=== PATIENT | male | born 1990 ===

== ENCOUNTER 2017-05-17 14:17 | Emergency (ER) | payer MEDICAID, OTHER ==
[2017-05-17 15:34] VITALS: BP 125/68; PULSE 70; RESP 20; TEMP 97.9; O2SAT 98
--- NOTE | 2017-05-17 15:45 | ED PDOC ---
Arrival/HPI - General Chief Complaint: Back Pain Time Seen by Provider: 05/17/17 15:35 Historian: Patient - History of Present Illness Narrative History of Present Illness (Text): 05/17/17 15:42 A 26 year old male, who denies any past medical history, presents to the emergency department complaining of lower back pain for 1 week. Patient states his pain has improved since. However, yesterday while playing basketball he began to experience left sided mid back pain. Patient took Aleve last night, with no relief. Patient denies any direct trauma, weakness, numbness, tingling, fever, chills, nausea, vomiting, abdominal pain, chest pain, shortness of breath or any other complaints. Time/Duration: 1 week Symptom Course: Worsening (yesterday) Quality: Other Context: Other Past Medical History - Provider Review Nursing Documentation Reviewed: Yes - Infectious Disease Hx of Infectious Diseases: None - Psychiatric Hx Substance Use: No Family/Social History - Physician Review Nursing Documentation Reviewed: Yes Family/Social History: No Known Family HX Smoking Status: Never Smoked Hx Alcohol Use: No Hx Substance Use: No Allergies/Home Meds Allergies/Adverse Reactions: Allergies No Known Allergies Allergy (Verified 05/17/17 15:38) Review of Systems - Physician Review All systems were reviewed & negative as marked: Yes - Review of Systems Constitutional: absent: Fevers, Night Sweats Respiratory: absent: SOB Cardiovascular: absent: Chest Pain Gastrointestinal: absent: Nausea, Vomiting Neurological: absent: Focal Weakness (/numbness/tingling) Physical Exam Vital Signs Reviewed: Yes Vital Signs Temp Pulse Resp BP Pulse Ox 05/17/17 15:24 97.9 F 70 20 125/68 98 Temperature: Afebrile Blood Pressure: Normal Pulse: Regular Respiratory Rate: Normal Appearance: Positive for: Well-Appearing, Non-Toxic, Comfortable Pain Distress: None Mental Status: Positive for: Alert and Oriented X 3 - Systems Exam Head: Present: Atraumatic, Normocephalic Pupils: Present: PERRL Extroacular Muscles: Present: EOMI Conjunctiva: Present: Normal Mouth: Present: Moist Mucous Membranes Neck: Present: Normal Range of Motion Respiratory/Chest: Present: Clear to Auscultation, Good Air Exchange. No: Respiratory Distress, Accessory Muscle Use Cardiovascular: Present: Regular Rate and Rhythm, Normal S1, S2. No: Murmurs Abdomen: Present: Normal Bowel Sounds. No: Tenderness, Distention, Peritoneal Signs Back: Present: Normal Inspection Upper Extremity: Present: Normal Inspection. No: Cyanosis, Edema Lower Extremity: Present: Normal Inspection, NORMAL PULSES, Normal ROM, Tenderness (Point tenderness to infrascapula), Neurovascularly Intact, Other ( Sensation and motor strength 5/5). No: Edema, CALF TENDERNESS, Swelling, Erythema, Deformity, Temperature Abnormalties Neurological: Present: GCS=15, CN II-XII Intact, Speech Normal, Motor Func Grossly Intact, Normal Sensory Function, Normal Cerebellar Funct Skin: Present: Warm, Dry, Normal Color. No: Rashes Psychiatric: Present: Alert, Oriented x 3, Normal Insight, Normal Concentration Medical Decision Making ED Course and Treatment: 05/17/17 15:42 Impression: A 26 year old male with left mid back pain Plan: -- Chest xray -- Urinalysis -- Toradol -- Reassess and disposition Progress Notes: Report Date : 05/17/2017 16:41:18 Procedure: Chest xray Dictator : Caleb Tran MD IMPRESSION: No active disease. 05/17/17 16:52 Urinalysis is negative for blood. Chest x-ray shows no infiltrate effusion cardiomegaly or pneumothorax. Improved post Toradol. We'll treat as a musculoskeletal problem. - Lab Interpretations Lab Results: Lab Results 05/17/17 16:15: Urine Color Yellow, Urine Appearance Clear, Urine pH 6.0, Ur Specific [place] 1.015, Urine Protein Negative, Urine Glucose (UA) Negative, Urine Ketones Negative, Urine Blood Negative, Urine Nitrate Negative, Urine Bilirubin Negative, Urine Urobilinogen 0.2, Ur Leukocyte Esterase Negative - RAD Interpretation Radiology Orders: 05/17/17 15:40 CHEST TWO VIEWS (PA/LAT) [RAD] Stat - Medication Orders Current Medication Orders: Discontinued Medications Ketorolac Tromethamine (Toradol) 30 mg IM ONCE ONE Stop: 05/17/17 15:41 Last Admin: 05/17/17 16:25 Dose: 30 mg [facility] Pain Assessment Document 05/17/17 16:25 OCS (Rec: 05/17/17 16:25 OCS [id number]) Pain Reassessment Is this a pain reassessment? Yes Sleep Is patient sleeping during reassessment? No Presence of Pain Presence of Pain Yes Pain Scale Used Pain Scale Used Numeric Location Left, Right or Bilateral Bilateral Upper or Lower Lower Pain Location Body Site Back Description Description Constant Aggravating Factors ADL's IM Administration Charges Document 05/17/17 16:25 OCS (Rec: 05/17/17 16:25 OCS [id number]) Injection Site MAR Injection Site Left Arm Charges for Administration # of IM Administrations 1 - Scribe Statement The provider has reviewed the documentation as recorded by the Scribe Karlie Pedroza Provider Scribe Attestation: All medical record entries made by the Scribe were at my direction and personally dictated by me. I have reviewed the chart and agree that the record accurately reflects my personal performance of the history, physical exam, medical decision making, and the department course for this patient. I have also personally directed, reviewed, and agree with the discharge instructions and disposition. Disposition/Present on Arrival - Present on Arrival Any Indicators Present on Arrival: No History of DVT/PE: No History of Uncontrolled Diabetes: No Urinary Catheter: No History of Decub. Ulcer: No History Surgical Site Infection Following: None - Disposition Have Diagnosis and Disposition been Completed?: Yes Diagnosis: Back strain Disposition: HOME/ ROUTINE Disposition Time: 16:52 Patient Plan: Discharge Condition: IMPROVED Discharge Instructions (ExitCare): Muscle Spasm (ED), Back Pain (ED) Additional Instructions: Rest and ice. Follow-up with PMD. Follow up in ER as needed. Avoid basketball or strenuous activity. Prescriptions: Naproxen [Naprosyn] 500 mg PO BID #14 tab Referrals: PCP,NO [Primary Care Provider] - Follow up with primary Forms: [employer] (Mosotho)
[2017-05-17 16:21] LABS: URINE BILIRUBIN NEGATIVE (NEGATIVE); URINE BLOOD NEGATIVE (NEGATIVE); URINE GLUCOSE (UA) NEGATIVE (NEGATIVE); URINE LEUKOCYTE ESTERASE NEGATIVE Leu/uL (NEGATIVE); URINE NITRATE NEGATIVE (NEGATIVE); URINE PROTEIN NEGATIVE mg/dL (<30 mg/dL); URINE UROBILINOGEN 0.2 E.U./dL (<1 E.U./dL)
[2017-05-17 16:34] LABS: URINE APPEARANCE CLEAR (CLEAR); URINE COLOR YELLOW (YELLOW)
--- NOTE | 2017-05-17 16:43 | RAD ---
HISTORY: back pain COMPARISON: No prior. TECHNIQUE: Chest PA and lateral FINDINGS: LUNGS: No active pulmonary disease. PLEURA: No significant pleural effusion identified. No pneumothorax apparent. CARDIOVASCULAR: Normal. OSSEOUS STRUCTURES: No significant abnormalities. VISUALIZED UPPER ABDOMEN: Normal. OTHER FINDINGS: None. IMPRESSION: No active disease.
== END 2017-05-17 16:58 | disposition home or self-care (01) ==
LOC: ED 14:17
DX: S39.012A Strain of muscle, fascia and tendon of lower back, initial encounter (principal); Y93.67 Activity, basketball
CPT/HCPCS: 71046; 81003; 96372; 99283; J1885

== ENCOUNTER 2017-09-20 19:16 | Emergency (ER) | payer MEDICAID, OTHER ==
[2017-09-20 19:52] VITALS: TEMP 98.6; BMI 22.2
--- NOTE | 2017-09-20 20:39 | ED PDOC ---
Arrival/HPI - General Historian: Patient - History of Present Illness Time/Duration: Prior to Arrival Symptom Onset: Sudden, Gradual Symptom Course: Unchanged Context: Other (basketball) <Naveed Rae - Last Filed: 09/21/17 02:23> <Edwin Taylor - Last Filed: 09/21/17 02:30> - General Chief Complaint: Eye Problem Time Seen by Provider: 09/20/17 20:20 - History of Present Illness Narrative History of Present Illness (Text): 09/20/17 20:59 Patient is a 27 M with no significant past medical history presenting with complaints of blurry vision and pain in right eye s/p injury during basketball an hour prior to arriving to the emergency department. Patient states he was scratched when a teammate's nail went in his eye. Admits to blurry vision, lacrimal formation of right eye, erythema. Denies loss of vision. (Naveed Rae) Past Medical History - Provider Review Nursing Documentation Reviewed: Yes - Infectious Disease Hx of Infectious Diseases: None - Cardiac Hx Cardiac Disorders: No - Pulmonary Hx Respiratory Disorders: No - Neurological Hx Neurological Disorder: No - HEENT Hx HEENT Disorder: No - Renal Hx Renal Disorder: No - Endocrine/Metabolic Hx Endocrine Disorders: No - Hematological/Oncological Hx Blood Disorders: No - Integumentary Hx Dermatological Disorder: No - Musculoskeletal/Rheumatological Hx Musculoskeletal Disorders: No - Gastrointestinal Hx Gastrointestinal Disorders: No - Genitourinary/Gynecological Hx Genitourinary Disorders: No - Psychiatric Hx Psychophysiologic Disorder: No Hx Substance Use: No - Anesthesia Hx Anesthesia: No Hx Anesthesia Reactions: No <Naveed Rae - Last Filed: 09/21/17 02:23> Family/Social History - Physician Review Nursing Documentation Reviewed: Yes Family/Social History: Other Smoking Status: Never Smoked Hx Alcohol Use: No Hx Substance Use: No <Naveed Rae - Last Filed: 09/21/17 02:23> Allergies/Home Meds <Naveed Rae - Last Filed: 09/21/17 02:23> <Edwin Taylor - Last Filed: 09/21/17 02:30> Allergies/Adverse Reactions: Allergies No Known Allergies Allergy (Verified 05/17/17 15:38) Home Medications: Home Meds Medication Instructions Recorded Confirmed Pediatric Multivit No.153/D3/K 1 tab PO DAILY 09/20/17 09/20/17 [Abdek Multivitamin Chew Tab] Review of Systems - Physician Review All systems were reviewed & negative as marked: Yes - Review of Systems Constitutional: Normal. absent: Fatigue Eyes: Vision Changes, Eye Pain, Other (lacrimal production). absent: Photophobia Respiratory: Normal. absent: SOB, Cough, Sputum Cardiovascular: Normal. absent: Chest Pain, Palpitations Gastrointestinal: Normal. absent: Abdominal Pain, Diarrhea Musculoskeletal: Normal. absent: Back Pain Neurological: Normal. absent: Headache, Dizziness Endocrine: Normal Hemo/Lymphatic: Normal Psychiatric: Normal <Naveed Rae - Last Filed: 09/21/17 02:23> Physical Exam Vital Signs Reviewed: Yes Temperature: Afebrile Blood Pressure: Normal Pulse: Regular Respiratory Rate: Normal Appearance: Positive for: Well-Appearing, Non-Toxic, Comfortable Pain Distress: None Mental Status: Positive for: Alert and Oriented X 3 - Systems Exam Head: Present: Atraumatic, Normocephalic Pupils: Present: PERRL, Other (corneal scratch). No: Pinpoint Extroacular Muscles: Present: EOMI Conjunctiva: Present: Other (erythematous, scleral laceration 5 mm) Mouth: Present: Moist Mucous Membranes Respiratory/Chest: Present: Clear to Auscultation, Good Air Exchange Cardiovascular: Present: Regular Rate and Rhythm, Normal S1, S2 Abdomen: Present: Normal Bowel Sounds. No: Tenderness Upper Extremity: Present: Normal Inspection. No: Edema Lower Extremity: Present: Normal Inspection. No: Edema Neurological: Present: GCS=15, CN II-XII Intact, Speech Normal Skin: Present: Warm, Normal Color Psychiatric: Present: Alert, Oriented x 3, Normal Insight, Normal Concentration <Naveed Rae - Last Filed: 09/21/17 02:23> Vital Signs Temp Pulse Resp BP Pulse Ox 09/20/17 21:33 68 16 146/70 99 09/20/17 19:48 98.6 F 80 17 121/78 100 Medical Decision Making Re-evaluation Time: 21:22 (pain improved after eye drops) Reassessment Condition: Re-examined, Improved <Naveed Rae - Last Filed: 09/21/17 02:23> <Edwin Taylor - Last Filed: 09/21/17 02:30> ED Course and Treatment: Visual acuity 20/20, Corneal scratch and scleral laceration noted; will discuss with dental prosthetist Dr. Taylor. Discussed with ophthalmology, patient will continue with antibiotics ciloxan and maxitrol until appointment this week with ophtho. (Naveed Rae) Patient Seen With Resident: In agreement with resident note, which includes further HPI details. Patient was seen and evaluated with resident, came up with plan and treatment together. 27 year old male, presents complaining of blurry vision and pain to the right eye s/p injury playing basketball. Tetracaine used to alleviate pain for exam. Fluorescein added to right eye. Mosqueda lamp used by me and resident to observe a 2mm corneal abrasion. There was also a laceration to the left of conjunctiva as noted. No lacrimal gland or duct laceration. Case was discussed with resident and me with Special Agent In Charge Dr. Taylor who recommended medications as documented and prescribed. He recommended patient follow up with his office tomorrow. He said for them to call his office in the morning. Patient and mom were advised to make sure they follow up tomorrow. They were advised to return to the ED with any worsening symptoms or concerns. (Edwin Taylor) <Naveed Rae - Last Filed: 09/21/17 02:23> - Scribe Statement The provider has reviewed the documentation as recorded by the Scribe <Edwin Taylor - Last Filed: 09/21/17 02:30> - Scribe Statement Jaci Law Provider Scribe Attestation: All medical record entries made by the Scribe were at my direction and personally dictated by me. I have reviewed the chart and agree that the record accurately reflects my personal performance of the history, physical exam, medical decision making, and the department course for this patient. I have also personally directed, reviewed, and agree with the discharge instructions and disposition. (Edwin Taylor) Disposition/Present on Arrival - Present on Arrival Any Indicators Present on Arrival: No History of DVT/PE: No History of Uncontrolled Diabetes: No Urinary Catheter: No History of Decub. Ulcer: No History Surgical Site Infection Following: None - Disposition Have Diagnosis and Disposition been Completed?: Yes Disposition Time: 21:22 Patient Plan: Discharge <Naveed Rae - Last Filed: 09/21/17 02:23> <BrandonEdwin L - Last Filed: 09/21/17 02:30> - Disposition Diagnosis: Corneal abrasion Disposition: HOME/ ROUTINE Condition: GUARDED Discharge Instructions (ExitCare): Corneal Abrasion (DC) Print Language: SYRIAN Additional Instructions: Mr. Peter thank you for letting us take care of you today. Your provider was Dr. Taylor. You were treated for your corneal abrasion. The emergency medical care you received today was directed at your acute symptoms. If you were prescribed any medication, please fill it and take as directed. It may take several days for your symptoms to resolve. Return to the Emergency Department if your symptoms worsen, do not improve, or if you have any other problems. Please contact your doctor or call one of the physicians/clinics you have been referred to that are listed on the Patient Visit Information form that is included in your discharge packet. Bring any paperwork you were given at discharge with you along with any medications you are taking to your follow up visit. Our treatment cannot replace ongoing medical care by a primary care provider (PCP) outside of the emergency department. Thank you for allowing the [facility] team to be part of your care today. Please make an appointment with Special Agent In Charge, Dr. Rivera tomorrow morning. Ciloxan: place a drop in right eye every 2-3 hours while awake. Maxitrol: pull lower lid down and place in eye before bed. If you had an X-Ray or CT scan: A Radiologist will review the ED reading if any change in treatment is needed we will contact you. If you had a blood, urine, or wound culture: It will take several days for the results, if any change in treatment is needed we will contact you. If you had an STI test: It will take 48 hours for the results. Please call after 1 week if you have not heard back. Prescriptions: Ciprofloxacin HCl [Ciloxan] 5 ml OP Q3H #1 drops Neomycin/Polymyxin B/Dexametha [Maxitrol] 1 oin OP ACHS #1 oin Referrals: Michel Sapp MD [Primary Care Provider] - Follow up with primary Anders Rivera MD [Staff Provider] - Follow up with primary Forms: [employer] (Moldovan)
[2017-09-20 21:47] VITALS: BP 146/70; PULSE 68; RESP 16; O2SAT 99
== END 2017-09-20 21:33 | disposition home or self-care (01) ==
LOC: ED 19:16
DX: S05.01XA Injury of conjunctiva and corneal abrasion without foreign body, right eye, initial encounter (principal); W50.4XXA Accidental scratch by another person, initial encounter; Y93.67 Activity, basketball

== ENCOUNTER 2018-08-11 13:58 | Emergency (ER) | payer OTHER ==
[2018-08-11 14:05] VITALS: BMI 23.6
[2018-08-11 14:08] VITALS: TEMP 97.6
[2018-08-11] MEDS ORDERED: Sodium Chloride 0.9% 1,000 ML IV STA (14:12)
[2018-08-11 14:32] LABS: BASO # 0.02 K/mm3 (0.0-2.0); BASO % 0.4 % (0.0-3.0); EOS # 0.1 (0.0-0.7); EOS % 1.5 % (1.5-5.0); HEMOGLOBIN 14.6 g/dL (14.0-18.0); LYMPH # 1.7 (1.2-3.4); LYMPH % 32.3 % (22.0-35.0); MEAN CELL VOLUME 86.8 fl (80.0-105.0); MEAN CORPUSCULAR HEMOGLOBIN 30.5 pg (25.0-35.0); MEAN CORPUSCULAR HGB CONC 35.1 g/dl (31.0-37.0); MEAN PLATELET VOLUME 10.7 fl (7.0-11.0); MONO # 0.4 (0.1-0.6); MONO % 6.8 % (1.0-6.0); RBC 4.79 10^6/uL (3.5-6.1); RED CELL DISTRIBUTION WIDTH 12.3 % (11.5-14.5); WHITE BLOOD COUNT 5.3 10^3/uL (4.5-11.0)
--- NOTE | 2018-08-11 14:32 | ED PDOC ---
Arrival/HPI - General Chief Complaint: ENT Problem Time Seen by Provider: 08/11/18 13:59 Historian: Patient - History of Present Illness Narrative History of Present Illness (Text): 08/11/18 15:01 27 y/o male with no significant PMH presents to the ED c/o "feeling off" x 1 day. Pt states his girlfriends mother is dying of cancer, and today may be "her last day on earth". Pt reports increased anxiety secondary to these life cir cumstances. Associated mild sore throat, palpitations and "lump" on the left side of his neck that he felt this morning. Denies SI, HI, hallucinations, fever, chills, sinus congestion, SOB, chest pain, abdominal pain, nausea, vomiting, back pain, neck pain/stiffness, difficulty swallowing, or any other associated symptoms. Past Medical History - Provider Review Nursing Documentation Reviewed: Yes - Infectious Disease Hx of Infectious Diseases: None - Cardiac Hx Cardiac Disorders: No - Pulmonary Hx Respiratory Disorders: No - Neurological Hx Neurological Disorder: No - HEENT Hx HEENT Disorder: No - Renal Hx Renal Disorder: No - Endocrine/Metabolic Hx Endocrine Disorders: No - Hematological/Oncological Hx Blood Disorders: No - Integumentary Hx Dermatological Disorder: No - Musculoskeletal/Rheumatological Hx Musculoskeletal Disorders: No - Gastrointestinal Hx Gastrointestinal Disorders: No - Genitourinary/Gynecological Hx Genitourinary Disorders: No - Psychiatric Hx Psychophysiologic Disorder: No Hx Substance Use: No - Anesthesia Hx Anesthesia: No Hx Anesthesia Reactions: No Family/Social History - Physician Review Nursing Documentation Reviewed: Yes Family/Social History: No Known Family HX Smoking Status: Never Smoked Hx Alcohol Use: No Hx Substance Use: No Allergies/Home Meds Allergies/Adverse Reactions: Allergies No Known Allergies Allergy (Verified 05/17/17 15:38) Home Medications: Home Meds Medication Instructions Recorded Confirmed Pediatric Multivit No.153/D3/K 1 tab PO DAILY 09/20/17 09/20/17 [Abdek Multivitamin Chew Tab] Review of Systems - Review of Systems Constitutional: Other (feels "off"). absent: Fatigue, Fevers Eyes: Normal. absent: Vision Changes, Photophobia ENT: Sore Throat. absent: Sinus Congestion Respiratory: Normal. absent: SOB, Cough Cardiovascular: Palpitations. absent: Chest Pain, Syncope Gastrointestinal: Normal. absent: Abdominal Pain, Nausea, Vomiting Genitourinary Male: Normal. absent: Dysuria, Frequency Musculoskeletal: Normal. absent: Arthralgias, Back Pain, Neck Pain Skin: Normal. absent: Rash Neurological: Normal. absent: Headache, Dizziness, Focal Weakness, Gait Changes, Disequilibrium Psychiatric: Anxiety. absent: Depression, Suicidal Ideation Physical Exam Vital Signs Reviewed: Yes Vital Signs Temp Pulse Resp BP Pulse Ox 08/11/18 13:59 97.6 F 106 H 18 135/76 99 Last Vital Signs Temp 97.6 F 08/11/18 13:59 Pulse 63 08/11/18 15:28 Resp 16 08/11/18 15:28 BP 133/74 08/11/18 15:28 Pulse Ox 96 08/11/18 15:28 Temperature: Afebrile Blood Pressure: Normal Pulse: Tachycardic Respiratory Rate: Normal Appearance: Positive for: Well-Appearing, Non-Toxic Pain Distress: None Mental Status: Positive for: Alert and Oriented X 3 - Systems Exam Head: Present: Atraumatic, Normocephalic Pupils: Present: PERRL Extroacular Muscles: Present: EOMI Conjunctiva: Present: Normal Ears: Present: Normal, NORMAL TM, Normal [place] Mouth: Present: Moist Mucous Membranes Pharnyx: Present: Normal. No: ERYTHEMA, EXUDATE, TONSILS ENLARGED Nose (External): Present: Atraumatic Nose (Internal): Present: Normal Inspection Neck: Present: Normal Range of Motion. No: Meningeal Signs, Paraspinal Tenderness, Lymphadenopathy Respiratory/Chest: Present: Clear to Auscultation, Good Air Exchange. No: Respiratory Distress, Accessory Muscle Use Cardiovascular: Present: Regular Rate and Rhythm, Normal S1, S2, Peripheal Pulses Present Abdomen: Present: Normal Bowel Sounds. No: Tenderness, Distention, Peritoneal Signs, Rebound, Guarding Back: Present: Normal Inspection. No: CVA Tenderness, Midline Tenderness, Paraspinal Tenderness Upper Extremity: Present: Normal Inspection, Normal ROM, NORMAL PULSES, Jitendra rovascularly Intact, Capillary Refill < 2s. No: Cyanosis, Edema, Temperature Abnormalties Lower Extremity: Present: Normal Inspection, Normal ROM, Neurovascularly Intact, Capillary Refill < 2 s. No: Temperature Abnormalties Neurological: Present: GCS=15, CN II-XII Intact, Speech Normal, Motor Func Grossly Intact, Normal Sensory Function, Gait Normal Skin: Present: Warm, Dry, Normal Color. No: Rashes Lymphatic: No: Cervical Adenopathy Psychiatric: Present: Alert, Oriented x 3, Normal Insight, Normal Concentration, Anxious Medical Decision Making ED Course and Treatment: Initial Plan: * CBC, CMP * TSH, Free T4 * Troponin * EKG * CXR * Rapid Strep * Monospot * IVF 08/11/18 15:12 Bloodwork reviewed, unremarkable. EKG normal CXR shows no active disease Rapid strep negative, monospot pending. Patient reports improvement in symptoms with fluids. Vitals have improved since triage. Advised PMD followup. Diagnostic testing results and plan of care discussed with patient. Strict instructions given regarding importance of followup, and signs/symptoms to return to ER including chest pain, SOB, fever, or any other new/worsening symptoms. Pt verbalized understanding of discussion. Patient is A&Ox3, ambula ting with steady gait, with vital signs stable for discharge. - Lab Interpretations Lab Results: 08/11/18 14:21 08/11/18 14:21 Lab Results 08/11/18 14:21: Free T4 1.08, TSH 3rd Generation 1.29 08/11/18 14:21: Sodium 137, Potassium 3.9, Chloride 100, Carbon Dioxide 28, Anion Gap 14, BUN 14, Creatinine 0.9, Est GFR ( Amer) > 60, Est GFR (Non- Af Amer) > 60, Random Glucose 111 H, Calcium 9.6, Phosphorus 2.7, Magnesium 1.9, Total Bilirubin 0.5, AST 32, ALT 28, Alkaline Phosphatase 88, Troponin I < 0.01, Total Protein 8.1, Albumin 4.8, Globulin 3.2, Albumin/Globulin Ratio 1.5 08/11/18 14:21: Grp A Beta Strep Ag Negative 08/11/18 14:21: WBC 5.3, RBC 4.79, Hgb 14.6, Hct 41.6 L, MCV 86.8, MCH 30.5, MCHC 35.1, RDW 12.3, Plt Count 186, MPV 10.7, Neut % (Auto) 59.0, Lymph % (Auto) 32.3, [place] % (Auto) 6.8 H, Eos % (Auto) 1.5, Baso % (Auto) 0.4, Lymph # (Auto) 1.7, [place] # (Auto) 0.4, Eos # (Auto) 0.1, Baso # (Auto) 0.02, Absolute Neuts (auto) 3.13 I have reviewed the lab results: Yes - RAD Interpretation Radiology Orders: 08/11/18 14:16 CHEST PORTABLE [RAD] Stat - EKG Interpretation EKG Interpretation (Text): 08/11/18 14:25 Rate 77; NSR; Normal Intervals; Normal [place]; No STEMI or other signs of ischemia Interpreted by ED Physician: Yes Type: 12 lead EKG - Medication Orders Current Medication Orders: Sodium Chloride (Sodium Chloride 0.9%) 1,000 mls @ 999 mls/hr IV .Q1H1M STA Stop: 08/11/18 15:12 Disposition/Present on Arrival - Present on Arrival Any Indicators Present on Arrival: No History of DVT/PE: No History of Uncontrolled Diabetes: No Urinary Catheter: No History of Decub. Ulcer: No History Surgical Site Infection Following: None - Disposition Have Diagnosis and Disposition been Completed?: Yes Diagnosis: Anxiety, Viral pharyngitis Disposition: HOME/ ROUTINE Disposition Time: 15:30 Patient Plan: Discharge Condition: IMPROVED Discharge Instructions (ExitCare): Anxiety, Adult (DC) Additional Instructions: Increase fluids Rest, no strenuous activity Followup with primary doctor or clinic within 2 days Return to ER with any new/worsening symptoms Referrals: [facility] [Outside] - Follow up with primary Faina Ocampo MD [Medical Doctor] - Follow up with primary [facility] [Outside] - Follow up with primary Forms: [employer] (Upper Sorbian), WORK NOTE
[2018-08-11 14:40] LABS: ALB/GLOB RATIO 1.5 (1.1-1.8); ALBUMIN 4.8 g/dL (3.0-4.8); ALT/SGPT 28 U/L (7-56); AST/SGOT 32 U/L (17-59); BLOOD UREA NITROGEN 14 mg/dL (7-21); CALCIUM 9.6 mg/dL (8.4-10.5); GFR NON-AFRICAN AMERICAN > 60
[2018-08-11 14:50] LABS: TROPONIN I < 0.01 ng/mL
[2018-08-11 15:23] LABS: FREE T4 1.08 ng/dL (0.78-2.19)
--- NOTE | 2018-08-11 15:34 | RAD ---
Date of service: 08/11/2018 HISTORY: palpitations COMPARISON: No prior. FINDINGS: LUNGS: No active pulmonary disease. PLEURA: No significant pleural effusion identified, no pneumothorax apparent. CARDIOVASCULAR: No atherosclerotic calcification present Normal. OSSEOUS STRUCTURES: No significant abnormalities. VISUALIZED UPPER ABDOMEN: Normal. OTHER FINDINGS: None. IMPRESSION: No active disease.
[2018-08-11 15:38] VITALS: BP 133/74; PULSE 63; RESP 16; O2SAT 96
--- NOTE | 2018-08-12 03:07 | CARD ---
APPROVED REPORT Date of service: 08/11/2018 EKG Measurement Heart [id number] <Conclusion> Poor data quality, interpretation may be adversely affected Normal sinus rhythm with sinus arrhythmia Normal ECG
== END 2018-08-11 15:45 | disposition home or self-care (01) ==
LOC: ED 13:58
DX: J02.9 Acute pharyngitis, unspecified (principal); F41.9 Anxiety disorder, unspecified
CPT/HCPCS: 71045; 80053; 83735; 84100; 84439; 84443; 84484; 85025; 86308; 87070; 87430; 93005; 99283; J7030